=== PATIENT | female | born 2000 | race African-American/Black ===

== ENCOUNTER 2024-09-06 11:12 | Day surgery (SDC) | payer BC ==
[2024-09-06] MEDS ORDERED: hydrALAZINE 20 MG/ML VIAL SLOW IVP PRN (12:34)
== END 2024-09-06 12:38 | disposition home or self-care (01) ==
LOC: CSHLD/OP 11:12
PROVIDERS: ATTEND Student in an Organized Health Care Education/Training Program
DX: O47.1 False labor at or after 37 completed weeks of gestation (principal); O98.513 Other viral diseases complicating pregnancy, third trimester; B00.9 Herpesviral infection, unspecified; Z3A.37 37 weeks gestation of pregnancy; Z79.899 Other long term (current) drug therapy
CPT/HCPCS: 99282